=== PATIENT | female | born 1970 | race Two or more races ===

== ENCOUNTER 2023-02-12 07:42 | Outpatient (CLI) | payer OTHER | END 2023-02-12 07:45 | disposition home or self-care (01) | LOC: NUCLEAR 07:42 | PROVIDERS: ATTEND Internal Medicine Hematology & Oncology | DX: C80.1 Malignant (primary) neoplasm, unspecified (principal); R91.8 Other nonspecific abnormal finding of lung field; K76.89 Other specified diseases of liver; Z80.0 Family history of malignant neoplasm of digestive organs ==